=== PATIENT | male | born 1955 | race Caucasian/White ===

== ENCOUNTER 2020-11-05 10:01 | Outpatient (REF) | payer MEDICARE, OTHER, SELFPAY | END 2020-11-05 10:02 | disposition home or self-care (01) | LOC: HO.BBR 10:01 | PROVIDERS: Visit Provider Internal Medicine Hematology & Oncology | DX: D75.1 Secondary polycythemia (principal) | CPT/HCPCS: 85018; 99195 ==

== ENCOUNTER 2020-11-12 10:12 | Outpatient (REF) | payer MEDICARE, OTHER, SELFPAY | END 2020-11-12 10:13 | disposition home or self-care (01) | LOC: HO.BBR 10:12 | PROVIDERS: Visit Provider Internal Medicine Hematology & Oncology | DX: D75.1 Secondary polycythemia (principal) | CPT/HCPCS: 36415; 85018; 99195 ==

== ENCOUNTER 2020-11-19 09:57 | Outpatient (REF) | payer MEDICARE, OTHER, SELFPAY | END 2020-11-19 09:58 | disposition home or self-care (01) | LOC: HO.BBR 09:57 | PROVIDERS: Visit Provider Internal Medicine Hematology & Oncology | DX: D75.1 Secondary polycythemia (principal) | CPT/HCPCS: 36415; 85018; 99195 ==